=== PATIENT | female | born 1960 | race African-American/Black ===

== ENCOUNTER 2022-07-16 12:15 | Emergency (ER) | payer OTHER ==
--- OUTSIDE RECORDS SUMMARY | 2022-07-16 12:18 | XMS REPORT | Continuity of Care Document ---
:1960 Author Organization [facility] t Address [address] [place] [address] Care Team Providers Name Role Phone Jomar Carrizales Jr. Primary Care Physician Adair Emmanuel MD Attending Clinician ADAIR EMMANUEL Attending Clinician Unavailable Doctor Unassigned, [place] Attending Clinician Unavailable SERGEY NAPOLES Attending Clinician Unavailable ADAIR EMMANUEL Admitting Clinician Unavailable Payers Payer Name Policy Type Policy Number Effective Date Expiration Date S ource Problems Condition Condition Condition Status Onset Resolution Last Treating Co mments Source Name Details Category Date Date Treatment Clinician Date Hypoglycem Hypoglycem Disease Active U philip ia ia 3-11 ity of 00:00: [address] Generalize Generalize Disease Active U [place] d anxiety d anxiety 3-11 ity of disorder disorder 00:00: [address] Cold Cold Disease Active Univers intoleranc intoleranc 3-11 it y of e e 00:00: [address] Memory Memory Disease Active Univers loss loss 3-11 ity of 00:00: [place] 00 [facility] Pre-diabet Pre-diabet Disease Active 2014-09 U elleners es es 2-23 ity of 00:00: [place] [facility] Atrial Atrial Disease Active 2014-09 Univers fibrillati fibrillati 2-23 it y of on, on, 00:00: [place] unspecifie unspecifie 00 Me dical d d Branch Gastroesop Gastroesop Disease Active 2014-09 U nivers hageal hageal 2- ity of reflux reflux 00:00: [place] disease disease 00 Medical with with Branch esophagiti esophagiti s s Hiatal Hiatal Disease Active 2014-09 Univers hernia hernia 2- ity of 00:00: [place] 00 Medical Branch Essential Essential Problem Active Com mon (primary) (primary) Spir it hypertensi hypertensi - [facility] on on [facility] GERD GERD Problem Active Common without without Spirit esophagiti esophagiti - [facility]I s s [facility] Prediabete Prediabete Problem Active C ommon s s [facility] Anxiety Anxiety Problem Active Common [facility] Environmen Environmen Problem Active C ommon millicent millicent Spirit allergies allergies - CH I [facility] Paresthesi Paresthesi Problem Active C ommon a a [facility] Low Low Problem Active Common vitamin D vitamin D Spir it level level - [facility] Allergies, Adverse Reactions, Alerts Allergy Allergy Status Severity Reaction(s) Onset Inactive Treating Comm ents Source Name Type Date Date Clinician CODEINE DRUG Active Hives 2014-09 Univers INGREDI 2-23 ity of 00:00: [place] 00 Medical Branch MORPHINE DRUG Active Hives 2014-09 Univers INGREDI 2-23 ity of 00:00: [place] 00 Medical Branch PREDNISO DRUG Active Other-Cmnt 2014-09 Univ ers NE INGREDI 223 ity of 00:00: [place] 00 Medical Branch Codeine Propensi Active Hives 2014-09 Univers ty to 11-19 ity of adverse 00:00: [place] reaction 00 Medical s Branch Morphine Propensi Active Hives 2014-09 Univer s ty to 2 ity of adverse 00:00: [place] reaction 00 Medical s Branch Predniso Propensi Active Other - See 2014-09 Heart U nivers ne ty to comments 11-19 flutter ity of adverse 00:00: [place] reaction 00 Medical s Branch MORPHINE Adverse Active Info Not Commo n Reaction Available [facility] PredniSO Adverse Active Info Not Commo n NE Reaction Available [facility] Social History Social Habit Start Date Stop Date Quantity Comments Source History of Cigarette Smoker Universi ty of tobacco use [facility] Exposure to 2022-01-16 2022-01-26 Not sure University of SARS-CoV-2 00:00:00 15:45:00 [facility] (event) Branch Alcohol intake 2021-12-19 2021-12-19 0 /d University 00:00:00 00:00:00 [facility] Tobacco use and 2015-09-18 2015-09-18 Never used Universit y of exposure 00:00:00 00:00:00 [facility] Sex Ass[birth year] At [birth year] Universit y of 00:00:00 00:00:00 [facility] Smoking Status Start Date Stop Date Source Never smoker [facility] Medications Ordered Filled Start Stop Current Ordering Indication Dosage Frequency Signature Comments Components Source Medication Medication Date Date Medication? Clinician (SIG) Name Name Amlodipine Amlodipine 2018-09 Yes Beulah Long 1 tablet Common Besylate Besylate 1-14 Spirit 00:00: - [facility] CloNIDine CloNIDine Yes Beulah Long 1 patch to Common 9-20 skin Spirit 00:00: - [facility] miglitol 25 Yes [id number] 25mg Take 1 Univers mg tablet 4-06 tablet by ity o f 00:00: mouth 3 [place] ([facility]) Medical times Branch daily with meals. miglitol 25 Yes [id number] 25mg Take 1 Univers mg tablet 4-06 tablet by ity o f 00:00: mouth 3 [place] (three) Medical times Branch daily with meals. diltiazem Yes Univers XR 180 mg 1-26 ity of 24 hr 00:00: [place] capsule 00 Medical Branch diltiazem Yes Univers XR 180 mg 1-26 ity of 24 hr 00:00: [place] capsule 00 Medical Branch pantoprazol Yes [id number] 40mg Take 1 Univers e 7-29 tablet by ity of (PROTONIX) 00:00: mouth [place] 40 mg EC 00 daily. Medical tablet Branch pantoprazol Yes [id number] 40mg Take 1 Univers e 7-29 tablet by ity of (PROTONIX) 00:00: mouth [place] 40 mg EC 00 daily. Medical tablet Branch Immunizations Ordered Filled Immunization Date Status Comments Sourc e Immunization Name Name SARS-COV-2 COVID-19 2021-02-03 Completed Unive rsity of PFIZER VACCINE 00:00:00 [facility] SARS-COV-2 COVID-19 2021-02-03 Completed Unive rsity of PFIZER VACCINE 00:00:00 [facility] SARS-COV-2 COVID-19 2021-01-14 Completed Unive rsity of PFIZER VACCINE 00:00:00 [facility] SARS-COV-2 COVID-19 2021-01-14 Completed Unive rsity of PFIZER VACCINE 00:00:00 [facility] Procedures This patient has no known procedures. Encounters Start End Encounter Admission Attending Care Care Encounter Source Date/Time Date/Time Type Type Clinicians Facility Department ID 2022-03-05 2022-03-05 Telephone [facility] [id number] Univers 00:00:00 00:00:00 Qiamichaeljun [place] [id number] ity of [id number] [phone] Il dical NAL [address] [place] [address] 2022-01-26 2022-01-26 Outpatient R [facility] [id number] Univers 15:48:58 23:59:00 QIANGJUN ity o [facility] 2022-01-26 2022-01-26 Outpatient R CHOLO, [facility] [id number] Univers 15:48:58 15:48:58 QIANGJUN ity o f [facility] 2022-01-20 2022-01-20 [facility] [id number] Univers 00:00:00 00:00:00 Quentinjun [place] [id number] ity [id number] [id number] Il dical NAL [address] [place] [address] 2022-01-16 2022-01-16 [facility] [id number] Univers 00:00:00 00:00:00 Qiangjun [place] [id number] ity [id number] [id number] Il dical [address] 2022-01-15 2022-01-15 Outpatient R CHOLO, [facility] [id number] Univers 09:53:04 23:59:00 ADAIR santiago [facility] 2022-01-15 2022-01-15 Outpatient R CHOLO, [facility] [id number] Univers 10:00:00 10:00:00 ADAIR santiago [facility] 2021-12-19 2021-12-19 Outpatient R CHOLO, [facility] [id number] Univers 09:40:00 10:27:59 ADAIR santiago [facility] 2021-12-19 2021-12-19 Office [place], [facility] [id number] Univers 09:40:00 10:27:59 Visit Adair RAMOSHENRRY [id number] ity [facility] [id number] [phone] Il dical [address] 2021-12-19 2021-12-19 Outpatient R CHOLO, [facility] [id number] Univers 09:40:00 10:27:59 ADAIR santiago [facility] 2021-12-19 2021-12-19 Orders Doctor KEVIN [id number] Univers 00:00:00 00:00:00 Only Unassigned, CEL[place] [id number] ity of [place] [facility] [id number] Star as [phone] [address] 2021-11-26 2021-11-26 Orders Doctor KEVIN [id number] Univers 00:00:00 00:00:00 Only Unassigned, CEL[place] [id number] ity of [facility] [id number] Star as [phone] [address] 2021-02-03 2021-02-03 Outpatient R DONY, [facility] [id number] Univers 10:10:00 10:10:00 SERGEY ity of [facility] 2021-01-14 2021-01-14 Outpatient [facility] [id number] Univers 10:10:00 10:10:00 ity of [facility] 2019-08-10 2019-08-10 Outpatient [facility] [id number] Common 08:15:00 08:15:00 [place] [facility] [facility] 2019-08-03 2019-08-03 Outpatient [facility] [id number] Common 15:00:00 15:00:00 [place] [facility] 2019-07-13 2019-07-13 Outpatient [facility] [id number] Common 12:17:00 12:17:00 [place] [facility] 2019-07-13 2019-07-13 Outpatient [facility] [id number] Common 07:59:00 07:59:00 [place] [facility] 2019-07-10 2019-07-10 Outpatient [facility] [id number] Common 15:00:00 15:00:00 [place] [facility] 2019-06-15 2019-06-15 Outpatient [facility] [id number] Common 09:23:00 09:23:[address] [facility] 2019-06-15 2019-06-15 Outpatient [facility] [id number] Common 09:03:00 09:03:00 [place] [facility] 2019-05-30 2019-05-30 Outpatient [facility] [id number] Common 10:40:00 10:40:00 [place] [facility] 2019-04-27 2019-04-27 Outpatient [facility] [id number] Common 09:40:00 09:40:00 [place] [facility] 2019-04-07 2019-04-07 Outpatient [facility] [id number] Common 16:09:00 16:09:[address] [facility] [address] [facility] it Road [facility] 2019-04-06 2019-04-06 Outpatient [facility] [id number] Common 11:00:00 11:00:00 t [place] [facility] 2019-01-09 2019-01-09 Outpatient [facility] [id number] Common 14:00:00 14:00:00 t [facility] 2019-01-03 2019-01-03 Outpatient [facility] [place] [id number] Common 15:30:00 15:30:00 [facility] [place] [facility] Results This patient has no known results.
[2022-07-16 12:34] LABS: Urine Blood 3+ (Negative); Urine Glucose Negative (Negative); Urine Protein 3+ (Negative)
[2022-07-16 12:48] LABS: Urine RBC >50 /HPF (None Seen)
[2022-07-16 13:27] LABS: Absolute Lymphocytes (CBC) 1.3 K/uL (0.7-4.9); Hematocrit 43.7 % (36.0-45.0); Lymphocytes % 13.2 % (15.3-44.8); MCV 85.4 fL (80-100); MPV 7.8 fL (7.6-11.3); RBC Red Blood Cell Count 5.12 M/uL (3.86-4.86)
--- NOTE | 2022-07-16 13:27 | RAD REPORT ---
EXAM DESCRIPTION: CT - Stone Protocol - 07/16/2022 12:56 pm CLINICAL HISTORY: Hematuria COMPARISON: None. TECHNIQUE: Computed axial tomography of the abdomen pelvis was obtained without oral or IV contrast. Lack of IV and oral contrast limits evaluation of solid organs, appendix, bowel, and vessels. Schroeder l reformatted images were obtained and reviewed. All CT scans are performed using dose optimization technique as appropriate and may include automated exposure control or mA/KV adjustment according to patient size. FINDINGS: A renal calculus is not seen. An ureteral calculus is not noted. A bladder calculus is not present. The liver, spleen, pancreas and adrenals appear grossly normal There is no evidence of diverticulitis. The appendix appears normal Cholecystectomy. No adnexal mass seen IMPRESSION: Negative for a genitourinary calculus
[2022-07-16 13:43] LABS: Potassium 3.8 mmol/L (3.5-5.1)
--- NOTE | 2022-07-16 13:47 | EDPHYS ---
Physician Documentation [facility] Name: Breonna Ye Age: 62 yrs Sex: Female : 1960 Arrival Date: 07/16/2022 Time: 12:17 Bed 17 Private MD: Jomar Carrizales ED Physician Ruben Berger HPI: 07/16 13:05 This 62 yrs old Black Female presents to ER via Ambulatory with complaints of blood in kb urine. 13:06 The patient presents with urinary symptoms, dysuria, frequency, hematuria. Onset: The kb symptoms/episode began/occurred this morning, at 10:30. Modifying factors: The symptoms are alleviated by nothing, the symptoms are aggravated by urinating. Associated signs and symptoms: Pertinent positives: dysuria, hematuria, urinary frequency, Pertinent negatives: fever. Severity of symptoms: At their worst the symptoms were moderate, in the emergency department the symptoms are unchanged. The patient has not experienced similar symptoms in the past. The patient has been recently seen by a physician:. Pt states she was at Dr Jeffers's office for a preop colonoscopy visit when she noticed blood in her urine. Called Dr Carrizales's office and was told to come to the ER for a CT scan. Denies any pain to abd or flank. Reports dysuria, hematuria and urinary frequency only. . Historical: - Allergies: 12:22 Codeine; hb 12:22 Morphine; hb - PMHx: 12:22 GERD; Hypertension; reactive hypoglycemia; hb - Immunization history:: Adult Immunizations up to date. - Social history:: Smoking status: Patient denies any tobacco usage or history of. ROS: 13:05 Constitutional: Negative for fever, chills, and weight loss. kb 13:05 : Positive for urinary symptoms, urinary frequency, hematuria, burning with urination. 13:05 All other systems are negative. Exam: 13:05 Constitutional: This is a well developed, well nourished patient who is awake, alert, kb and in no acute distress. Head/Face: Normocephalic, atraumatic. ENT: Moist Mucous membranes Cardiovascular: Regular rate and rhythm with a normal S1 and S2. No gallops, murmurs, or rubs. No pulse deficits. Respiratory: Respirations even and unlabored. No increased work of breathing. Talking in full sentences Abdomen/GI: Soft, non-tender. No distention Back: No spinal tenderness. No costovertebral tenderness. Full range of motion. Skin: Warm, dry with normal turgor. Normal color. MS/ Extremity: Pulses equal, no cyanosis. Neurovascular intact. Full, normal range of motion. Neuro: Awake and alert, GCS 15, oriented to person, place, time, and situation. Moves all extremities. Normal gait. Psych: Awake, alert, with orientation to person, place and time. Behavior, mood, and affect are within normal limits. Vital Signs: 12:22 BP 199 / 85; Pulse 102; Resp 18; Temp 97.7(TE); Pulse Ox 100% on R/A; Weight 81.19 kg; hb Height 5 ft. 2 in. (157.48 cm); Pain 0/10; 14:50 BP 167 / 84; Pulse 91; Resp 16; Temp 97.9; Pulse Ox 100% ; bp 12:22 Body Mass Index 32.74 (81.19 kg, 157.48 cm) hb MDM: 12:23 Patient medically screened. kb 12:29 ED course: Discussed plan of care without CT scan with pt due to lack of pain, fever, kb other symptoms. Pt insists on CT scan since her dr told her she needed one. . 12:30 Data reviewed: vital signs, nurses notes. Data interpreted: Pulse oximetry: on room air kb is 100 %. Interpretation: normal. 13:46 Counseling: I had a detailed discussion with the patient and/or guardian regarding: the kb historical points, exam findings, and any diagnostic results supporting the discharge/admit diagnosis, lab results, radiology results, the need for outpatient follow up, a family practitioner, to return to the emergency department if symptoms worsen or persist or if there are any questions or concerns that arise at home. 07/16 12:23 Order name: Urine Microscopic Only; Complete Time: 12:57 kb 07/16 12:30 Order name: CBC with Diff; Complete Time: 13:40 kb 07/16 12:30 Order name: CT Stone Protocol; Complete Time: 13:31 kb 07/16 12:30 Order name: Basic Metabolic Panel; Complete Time: 13:43 kb 07/16 12:35 Order name: Urine Dipstick-Ancillary; Complete Time: 12:38 EDMS 07/16 12:59 Order name: Urine Culture EDHI 07/16 12:23 Order name: Urine Dipstick-Ancillary (obtain specimen); Complete Time: 12:41 kb 07/16 12:30 Order name: IV Start; Complete Time: 12:49 kb Administered Medications: 14:04 Drug: Rocephin (cefTRIAXone) 1 grams Route: IV; Rate: calculated rate; Site: right bp antecubital; 14:51 Follow up: IV Status: Completed infusion; IV Intake: 100ml bp Disposition Summary: 07/16/22 13:46 Discharge Ordered Location: Home kb Condition: Stable kb Diagnosis - UTI/ Urinary tract infection, site not specified kb Followup: kb - With: Emergency Department - When: As needed - Reason: Worsening of condition Followup: kb - With: Private Physician - When: 2 - 3 days - Reason: Recheck today's complaints, Continuance of care, Re-evaluation by your physician Discharge Instructions: - Discharge Summary Sheet kb - Urinary Tract Infection, Adult, Giol-br-Mdug kb Forms: - Medication Reconciliation Form kb - Thank You Letter kb - Antibiotic Education kb - Prescription Opioid Use kb Prescriptions: - Augmentin 875-125 mg Oral Tablet - take 1 tablet by ORAL route every 12 hours for 10 days; 20 tablet; Refills: 0, kb Product Selection Permitted Addendum: 07/21/2022 03:58 Co-signature as Attending Physician, Ruben Berger MD I agree with the assessment and c buck plan of care. Signatures: Dispatcher [employer] EDHI Gabi Culver, CLOAK ROOM ATTENDANT-C CLOAK ROOM ATTENDANT-Ckb Ruben Berger MD MD cha Baxter, Heather, ENDY RN Salomón Staton, ENDY RN bp Corrections: (The following items were deleted from the chart) 07/16 13:47 13:06 Pt states she was at Dr Jeffers's office for a preop colonoscopy visit when she kb noticed blood in her urine. Called Dr Carrizales's office and was told to come to the ER for a CT scan. Denies any pain to abd or flank. Reports dysuria, hematuria and urinary frequency only. . kb
--- NOTE | 2022-07-16 13:47 | ER ---
Nurse's Notes [facility] Name: Breonna Ye Age: 62 yrs Sex: Female : 1960 Arrival Date: 07/16/2022 Time: 12:17 Bed 17 Private MD: Jomar Carrizales Diagnosis: UTI/ Urinary tract infection, site not specified Presentation: 07/16 12:20 Chief complaint: Blood in urine, burning with urination, and urgency since this morning. Coronavirus screen: At this time, the client does not indicate any symptoms associated with coronavirus-19. Ebola Screen: No symptoms or risks identified at this time. Initial Sepsis Screen: Does the patient meet any 2 criteria? No. Patient's initial sepsis screen is negative. Does the patient have a suspected source of infection? No. Patient's initial sepsis screen is negative. Risk Assessment: Do you want to hurt yourself or someone else? Patient reports no desire to harm self or others. Onset of symptoms was July 16, 2022. 12:20 Method Of Arrival: Ambulatory hb 12:20 Acuity: REYES 4 hb Triage Assessment: 12:28 General: Appears in no apparent distress. Behavior is calm, cooperative, appropriate bp for age. Pain: Complains of pain in pelvis. EENT: No deficits noted. Neuro: No deficits noted. Cardiovascular: No deficits noted. Respiratory: No deficits noted. GI: No signs and/or symptoms were reported involving the gastrointestinal system. : Reports burning with urination, urinary frequency. Derm: No deficits noted. Musculoskeletal: No deficits noted. Historical: - Allergies: 12:22 Codeine; hb 12:22 Morphine; hb - PMHx: 12:22 GERD; Hypertension; reactive hypoglycemia; hb - Immunization history:: Adult Immunizations up to date. - Social history:: Smoking status: Patient denies any tobacco usage or history of. Screenin:29 Abuse screen: Denies threats or abuse. Denies injuries from another. Nutritional bp screening: No deficits noted. Tuberculosis screening: No symptoms or risk factors identified. Fall Risk None identified. Assessment: 12:29 General: SEE TRIAGE NOTE. bp 14:50 Reassessment: [place] HOME AMBULATORY WITH FAMILY. bp Vital Signs: 12:22 BP 199 / 85; Pulse 102; Resp 18; Temp 97.7(TE); Pulse Ox 100% on R/A; Weight 81.19 kg; hb Height 5 ft. 2 in. (157.48 cm); Pain 0/10; 14:50 BP 167 / 84; Pulse 91; Resp 16; Temp 97.9; Pulse Ox 100% ; bp 12:22 Body Mass Index 32.74 (81.19 kg, 157.48 cm) hb ED Course: 12:17 Patient arrived in ED. am2 12:17 Jomar Carrizales MD is Private Physician. am2 12:17 Gabi Culver FNP-C is [facility]. kb 12:17 Ruben Berger MD is Attending Physician. kb 12:21 Triage completed. hb 12:27 Salomón Staton, ENDY is Primary Nurse. bp 12:28 Arm band placed on. bp 12:29 Patient has correct armband on for positive identification. Bed in low position. Call bp light in reach. Side rails up X2. 12:49 CT Stone Protocol Sent. bp 12:49 Inserted saline lock: 22 gauge in right antecubital area, using aseptic technique. bp Blood collected. 12:58 CT Stone Protocol In Process Unspecified. EDMS 14:50 No provider procedures requiring assistance completed. IV discontinued, intact, bp bleeding controlled, No redness/swelling at site. Pressure dressing applied. Administered Medications: 14:04 Drug: Rocephin (cefTRIAXone) 1 grams Route: IV; Rate: calculated rate; Site: right bp antecubital; 14:51 Follow up: IV Status: Completed infusion; IV Intake: 100ml bp Medication: 12:29 VIS not applicable for this client. bp Intake: 14:51 IV: 100ml; Total: 100ml. bp Outcome: 13:46 Discharge ordered by . kb 14:50 Discharged to home ambulatory, with family. bp 14:50 Condition: stable 14:50 Discharge instructions given to patient, Instructed on discharge instructions, follow up and referral plans. medication usage, Demonstrated understanding of instructions, follow-up care, medications, Prescriptions given X 1. 14:51 Patient left the ED. bp Addendum: 07/19/2022 07:08 Addendum: Culture Results: Positive urine culture. No further action required. Bacteria e b sensitive to prescribed antibiotic. Signatures: Dispatcher [employer] EDMS Gabi Culver FNP-C FNP-Ckb Baxter, Heather, RN RN hb Elda Varela amSalomón Atkins RN RN bp Tala Buchanan
[2022-07-16] MEDS ORDERED: CEFTRIAXONE 1000 MG/VIAL ONE (13:59)
[2022-07-16] MEDS ORDERED: NA CHLORIDE 0.9% 100 ML IV ONE (13:59)
[2022-07-16 14:56] VITALS: O2SAT 100
[2022-07-16 14:57] VITALS: BP 167/84; TEMP 97.9
== END 2022-07-16 14:51 | disposition home or self-care (01) ==
LOC: ER 12:15
DX: N39.0 Urinary tract infection, site not specified (principal); I10 Essential (primary) hypertension; Z88.5 Allergy status to narcotic agent
CPT/HCPCS: 36415; 74176; 76377; 80048; 81003; 81015; 85025; 87077; 87086; 87088; 87186; 96365; 99284

== ENCOUNTER 2022-07-31 06:29 | Day surgery (SDC) | payer OTHER ==
--- NOTE | 2022-07-30 14:22 | EKG ---
Test Date: 2022-07-28 Test Time: 11:30:34 Hospice Clinical Manager: RIVER MEASUREMENT RESULTS: Intervals: Rate: 61 SC: 138 QRSD: 80 QT: 394 QTc: 396 [place]: P: 72 SC: 138 QRS: 70 T: 51 INTERPRETIVE STATEMENTS: Normal sinus rhythm ST abnormality, possible digitalis effect Abnormal ECG Compared to ECG 07/07/2017 23:04:50 Atrial abnormality no longer present ST (T wave) deviation still present Electronically Signed On 07-30-22 14:18:22 CDT by Jose Guadalupe Cotto
[2022-07-31] MEDS ORDERED: Ringers Lactate 1,000 ML IV ONE (06:45)
[2022-07-31 07:05] VITALS: O2SAT 100
[2022-07-31] MEDS ORDERED: LIDOCAINE 1% MPF 10 ML AMPULE ONE (07:42)
[2022-07-31] MEDS ORDERED: propofoL 200 MG/20 ML VIAL IV ONE (07:42)
[2022-07-31] MEDS ORDERED: MIDAZOLAM HCL 2 MG/2 ML INJ ONE (08:32)
[2022-07-31 10:19] VITALS: BP 137/65; TEMP 97
== END 2022-07-31 09:55 | disposition home or self-care (01) ==
LOC: OR 06:29
PROVIDERS: ATTEND Surgery
PROC: 0DB68ZX Excision of Stomach, Via Natural or Artificial Opening Endoscopic, Diagnostic (ICD-10-PCS; 2022-07-31)
PROC: 0DB48ZX Excision of Esophagogastric Junction, Via Natural or Artificial Opening Endoscopic, Diagnostic (ICD-10-PCS; 2022-07-31)
PROC: 0DB98ZX Excision of Duodenum, Via Natural or Artificial Opening Endoscopic, Diagnostic (ICD-10-PCS; principal; 2022-07-31 08:00)
PROC: 0DB78ZX Excision of Stomach, Pylorus, Via Natural or Artificial Opening Endoscopic, Diagnostic (ICD-10-PCS; 2022-07-31 08:00)
DX: K29.50 Unspecified chronic gastritis without bleeding (principal); R10.13 Epigastric pain; K21.9 Gastro-esophageal reflux disease without esophagitis; K31.7 Polyp of stomach and duodenum
CPT/HCPCS: 82947; 88305; 88312; 93005; J2250; J2704; J7120